=== PATIENT | female | born 1930 | race Caucasian/White ===

== ENCOUNTER → 2017-04-07 | Outpatient (CLI) | payer MEDICARE, OTHER ==
[~2017-04-07] MED LIST: ADVAIR 250/28 DISKUS IH; DUONEB 3 MG/3 ML3 ML IH; FLONASE NASAL S16 GM NS; MICARDIS 40MG40 MG PO; MUCINEX600 M1 PO; ONE DAILY1 TA1 PO; POTASSIUM IODID PO; SINGULAIR10 MG PO; SPIRIVA INH IH; SYNTHROID0.05 MG/TA PO; ZOCOR 20MG20 MG PO; ZYRTEC 10MG PO
== END ==
LOC: COL.RAD 11:15
DX: M43.16 Spondylolisthesis, lumbar region (principal); M53.2X6 Spinal instabilities, lumbar region; M43.8X4 Other specified deforming dorsopathies, thoracic region; M96.1 Postlaminectomy syndrome, not elsewhere classified

== ENCOUNTER → 2017-04-07 | Outpatient (CLI) | payer MEDICARE, OTHER | LOC: MHCPAIN 10:02 | DX: G89.29 Other chronic pain (principal); M47.27 Other spondylosis with radiculopathy, lumbosacral region; M53.3 Sacrococcygeal disorders, not elsewhere classified; M96.1 Postlaminectomy syndrome, not elsewhere classified | CPT/HCPCS: G0463 ==

== ENCOUNTER 2017-04-18 10:12 | Outpatient (CLI) | payer MEDICARE, OTHER ==
[2017-04-18] VITALS (7 sets, daily range): BP systolic 114–163; BP diastolic 55–82; PULSE 67–91
[~2017-04-18] VITALS: Ht 154.9 cm; Wt 69.0 kg
[~2017-04-18 10:12] MED LIST changes: -DUONEB 3 MG/3 ML3 ML IH; +IPRATROPIUM BROM3 M1 IH; -MICARDIS 40MG40 MG PO; +MICARDIS40 MG PO; +SINGULAIR 110 MG/TAB PO; -SINGULAIR10 MG PO; -ZYRTEC 10MG PO; +ZYRTEC 10MG10 MG PO
[2017-04-18] MEDS ORDERED: COMBIRESP IH (10:54)
== END 2017-04-18 14:34 | disposition home or self-care (01) ==
LOC: COL.RAD 10:12
DX: S22.070A Wedge compression fracture of T9-T10 vertebra, initial encounter for closed fracture (principal); M48.061 Spinal stenosis, lumbar region without neurogenic claudication; M43.16 Spondylolisthesis, lumbar region; M41.86 Other forms of scoliosis, lumbar region; Z96.9 Presence of functional implant, unspecified; Z80.9 Family history of malignant neoplasm, unspecified
CPT/HCPCS: Q9965

== ENCOUNTER → 2017-04-30 | Outpatient (CLI) | payer MEDICARE, OTHER ==
[~2017-04-30] MED LIST changes: +COMBIRESP IH
== END ==
LOC: MHCPAIN 10:06
DX: G89.29 Other chronic pain (principal); M47.27 Other spondylosis with radiculopathy, lumbosacral region; M96.1 Postlaminectomy syndrome, not elsewhere classified; M47.814 Spondylosis without myelopathy or radiculopathy, thoracic region; M48.061 Spinal stenosis, lumbar region without neurogenic claudication
CPT/HCPCS: G0463

== ENCOUNTER → 2017-06-05 | Outpatient (CLI) | payer MEDICARE, OTHER | LOC: MHCPAIN 10:01 | DX: M47.27 Other spondylosis with radiculopathy, lumbosacral region (principal); M48.07 Spinal stenosis, lumbosacral region; M46.96 Unspecified inflammatory spondylopathy, lumbar region | CPT/HCPCS: J1100; J3010; Q9967 ==

== ENCOUNTER → 2017-07-21 | Outpatient (CLI) | payer MEDICARE, OTHER | LOC: COL.RAD 11:30 | DX: M47.816 Spondylosis without myelopathy or radiculopathy, lumbar region (principal); M41.86 Other forms of scoliosis, lumbar region; M43.16 Spondylolisthesis, lumbar region ==